=== PATIENT | male | born 1955 | race Caucasian/White ===

== ENCOUNTER 2019-11-22 21:36 | Emergency (ER) | payer BC, MEDICARE ==
[2019-11-22] MEDS ORDERED: ASPIRIN 81 MG TABLET, CHEWABLE PO ONE (23:07)
[2019-11-22] MEDS ORDERED: IPRATROPIUM/ALBUTEROL 0.5-2.5 MG/3 ML AMPUL NEB ONE (23:08)
[2019-11-22] MEDS ORDERED: LISINOPRIL 10 MG TABLET PO ONE (23:08)
--- NOTE | 2019-11-22 23:09 | ER Document Report ---
ED Medical Screen (RME) - General Chief Complaint: Shortness Of Breath Stated Complaint: DIFFICULTY BREATHING Time Seen by Provider: 11/22/19 23:07 Primary Care Provider: RICKY ASHER MD [Primary Care Provider] - Follow up as needed Notes: Patient presents complaining of cough for the past 2 days with shortness of breath. Patient reports midsternal chest pain that has been constant. Patient denies any fever. Patient does have a history of COPD and hypertension and has been off of his lisinopril for some time. I have greeted and performed a rapid initial assessment of this patient. A comprehensive ED assessment and evaluation of the patient, analysis of test results and completion of the medical decision making process will be conducted by additional ED providers. TRAVEL OUTSIDE OF THE [place] IN LAST 30 DAYS: No - Related Data Allergies/Adverse Reactions: Penicillins Allergy (Intermediate, Verified 11/22/19 23:02) Swelling, Hives Past Medical History - Social History Frequency of alcohol use: None Drug Abuse: None - Past Medical History Cardiac Medical History: Reports: Hx Hypertension - on meds Denies: Hx Coronary Artery Disease, Hx Heart Attack Pulmonary Medical History: Denies: Hx Asthma, Hx Bronchitis, Hx COPD, Hx Pneumonia Neurological Medical History: Denies: Hx Cerebrovascular Accident, Hx Seizures Musculoskeltal Medical History: Denies Hx Arthritis Psychiatric Medical History: Reports: Hx Depression Past Surgical History: Reports: Hx Orthopedic Surgery - cervical fusion - Immunizations Hx Diphtheria, Pertussis, Tetanus Vaccination: Yes Physical Exam - Vital signs Vitals: Temp Pulse Resp BP Pulse Ox 98.1 F 96 20 170/106 H 98 11/22/19 22:28 11/22/19 22:28 11/22/19 22:28 11/22/19 22:28 11/22/19 22:28 - Respiratory Respiratory status: No respiratory distress Chest status: Tender, Pain with cough Breath sounds: Nonproductive cough Course - Vital Signs Vital signs: Temp Pulse Resp BP Pulse Ox 98.1 F 96 20 170/106 H 98 11/22/19 22:28 11/22/19 22:28 11/22/19 22:28 11/22/19 22:28 11/22/19 22:28 Doctor's Discharge - Discharge Referrals: RICKY ASHER MD [Primary Care Provider] - Follow up as needed
[2019-11-22 23:32] LABS: ABSOLUTE EOSINOPHILS # (AUTO) 0.2 10^3/uL (0.0-0.6); ABSOLUTE LYMPHOCYTES (AUTO) 1.1 10^3/uL (0.5-4.7); ABSOLUTE MONOCYTES (AUTO) 0.8 10^3/uL (0.1-1.4); ABSOLUTE NEUT (AUTO) 3.6 10^3/uL (1.7-8.2); BASOPHILS % (AUTO) 0.8 % (0-2); EOSINOPHILS % (AUTO) 3.1 % (0-6); HEMATOCRIT 45.2 % (37.9-51.0); HEMOGLOBIN 15.8 g/dL (13.5-17.0); LYMPHOCYTES % (AUTO) 19.5 % (13-45); MEAN CORPUSCULAR HEMOGLOBIN 30.7 pg (27.0-33.4); MEAN CORPUSCULAR VOLUME 88 fl (80-97); MONOCYTES % (AUTO) 13.4 % (3-13); PLATELET COUNT 104 10^3/uL (150-450); RED BLOOD COUNT 5.14 10^6/uL (4.35-5.55); RED CELL DISTRIBUTION WIDTH 15.9 % (11.5-14.0); SEGMENTED NEUTROPHILS % (AUTO) 63.2 % (42-78); TOTAL CELLS COUNTED % (AUTO) 100 %; WHITE BLOOD COUNT 5.7 10^3/uL (4.0-10.5)
[2019-11-22 23:44] LABS: ALBUMIN 4.7 g/dL (3.5-5.0); ALKALINE PHOSPHATASE 87 U/L (38-126); ANION GAP 13 (5-19); ASPARTATE AMINO TRANSFERASE 25 U/L (17-59); BILIRUBIN,DIRECT 0.2 mg/dL (0.0-0.4); BILIRUBIN,TOTAL 0.9 mg/dL (0.2-1.3); BLOOD UREA NITROGEN 19 mg/dL (7-20); CALCIUM 9.9 mg/dL (8.4-10.2); CARBON DIOXIDE 23 mmol/L (22-30); CHLORIDE 104 mmol/L (98-107); GLUCOSE 103 mg/dL (75-110); POTASSIUM 3.9 mmol/L (3.6-5.0); TOTAL PROTEIN 8.2 g/dL (6.3-8.2)
[2019-11-22 23:54] LABS: NT PRO BNP 49 pg/mL (<125)
[2019-11-22 23:55] LABS: TROPONIN I < 0.012 ng/mL
--- NOTE | 2019-11-23 00:36 | RADIOLOGY REPORT (SQ) ---
EXAM DESCRIPTION: XR CHEST 2 VIEWS COMPLETED DATE/TME: 11/22/2019 23:08 CLINICAL HISTORY: 64 years, Male, cp, sob COMPARISON: Prior study from 03/31/2016. NUMBER OF VIEWS: Two TECHNIQUE: Frontal and lateral radiographs of the chest were obtained LIMITATIONS: None. FINDINGS: Cardiac and mediastinal contours are stable. Lungs are clear. No pleural effusion or pneumothorax. Right paravertebral osteophyte is noted about the lower thoracic spine. IMPRESSION: No acute disease. copyright 2010 [email or web address]- All Rights Reserved
[2019-11-23] MEDS ORDERED: IPRATROPIUM/ALBUTEROL 0.5-2.5 MG/3 ML AMPUL NEB ONE (03:34)
--- NOTE | 2019-11-23 03:40 | ER Document Report ---
ED General - General Chief Complaint: Shortness Of Breath Stated Complaint: DIFFICULTY BREATHING Time Seen by Provider: 11/22/19 23:07 Primary Care Provider: JAMAL ASHER MD [Primary Care Provider] - Follow up as needed TRAVEL OUTSIDE OF THE [place] IN LAST 30 DAYS: No - HPI Notes: Mr. Cerrato is a 64-year-old male presenting with a chief complaint of breathing problems. This man is a patient of Dr. Jamal Asher . Longstanding history of COPD. Stop smoking 13 years ago. Patient lost his health insurance and has been out of all of his medications. All medicines have just been called in by his doctor and waiting for him a drug store. He came in tonight because he was wheezing and generally did not feel well. He denies chest pain at this time. He denies fever. He denies sputum production. - Related Data Allergies/Adverse Reactions: Penicillins Allergy (Intermediate, Verified 11/22/19 23:02) Swelling, Hives Past Medical History - Social History Smoking Status: Former Smoker Frequency of alcohol use: None Drug Abuse: None Family History: Reviewed & Not Pertinent Patient has suicidal ideation: No Patient has homicidal ideation: No - Past Medical History Cardiac Medical History: Reports: Hx Hypertension - on meds Denies: Hx Coronary Artery Disease, Hx Heart Attack Pulmonary Medical History: Denies: Hx Asthma, Hx Bronchitis, Hx COPD, Hx Pneumonia Neurological Medical History: Denies: Hx Cerebrovascular Accident, Hx Seizures Musculoskeletal Medical History: Denies Hx Arthritis Psychiatric Medical History: Reports: Hx Depression Past Surgical History: Reports: Hx Orthopedic Surgery - cervical fusion - Immunizations Hx Diphtheria, Pertussis, Tetanus Vaccination: Yes Review of Systems - Review of Systems Notes: Constitutional: Negative for fever. HENT: Negative for sore throat. Eyes: Negative for visual changes. Cardiovascular: Negative for chest pain. Respiratory: As per HPI. Gastrointestinal: Negative for abdominal pain, vomiting or diarrhea. Genitourinary: Negative for dysuria. Musculoskeletal: Negative for back pain. Skin: Negative for rash. Neurological: Negative for headaches, weakness or numbness. 10 point ROS negative except as marked above and in HPI. Physical Exam - Vital signs Vitals: Temp Pulse Resp BP Pulse Ox 98.1 F 96 20 170/106 H 98 11/22/19 22:28 11/22/19 22:28 11/22/19 22:28 11/22/19 22:28 11/22/19 22:28 - Notes Notes: GENERAL: Well-developed well-nourished appearing in no acute distress. SKIN: Good turgor no rashes. HEAD: Normocephalic atraumatic. EYES: PERRLA. EOMI. Conjunctivae and sclerae clear. EARS: CANALS AND TMS CLEAR. NOSE: CLEAR. MOUTH: Moist mucosa. Good dentition. No stridor or edema. No drooling. NECK: Supple. No masses or thyromegaly. No adenopathy. Carotids 2+ without bruits. No JVD. BACK: Symmetrical without tenderness. CHEST: Respirations unlabored. Scattered wheezes bilaterally . HEART: Regular rhythm. No murmur gallop or rub. ABDOMEN: Soft nontender without masses, organomegaly or rebound. Bowel sounds normally active. No bruits. GENITALIA: Deferred. EXTREMITIES: No edema. No calf tenderness. Cap refill less than 1.5 seconds. Dorsalis pedis and posterior tibial pulses 3+ and symmetrical. NEUROLOGICAL: GCS 15. Alert and oriented x3. Normal gait. Fluent speech. Cranial nerves II through XII intact. Sensorimotor and cerebellar normal. Normal tone. PSYCHIATRIC: Appropriate affect. Course - Re-evaluation Re-evalutation: 11/23/19 05:45 Received DuoNeb here. Also was given some oral clonidine for his blood pressure. Blood pressure came down nicely and his chest is now clear and he feels much better. I feel he stable for discharge and he is instructed to fill his current medications. I am also going to place him on a brief course of oral prednisone for 5 days. - Vital Signs Vital signs: Temp Pulse Resp BP Pulse Ox 97.9 F 78 24 H 148/92 H 97 11/23/19 01:45 11/23/19 03:48 11/23/19 01:45 11/23/19 03:46 11/23/19 03:48 - Laboratory Result Diagrams: 11/22/19 23:10 11/22/19 23:10 Laboratory results interpreted by me: 11/22/19 11/22/19 23:10 23:10 RDW 15.9 H Plt Count 104 L [place] % (Auto) 13.4 H Creatinine 1.27 H Est GFR (MDRD) Non-Af 57 L - Diagnostic Test Radiology reviewed: Reports reviewed Radiology results interpreted by me: 11/23/19 05:44 PA lateral chest x-ray shows no active disease per radiologist. Discharge - Discharge Clinical Impression: COPD exacerbation, Essential hypertension, Noncompliance Condition: Stable Disposition: HOME, SELF-CARE Additional Instructions: Restart all of your usual medications. In addition I am giving you a pr escription for prednisone. Follow-up with your primary care physician within the next 10 days. Return here as needed for new or worsening symptoms: Pain that is worsening or unimproved Uncontrolled vomiting High fever or shaking chills Overall worsening Prescriptions: Prednisone [Deltasone 20 mg Tablet] 2 tab PO DAILY 5 Days tablet Referrals: JAMAL ASHER MD [Primary Care Provider] - Follow up as needed
[2019-11-23] MEDS: CLONIDINE HCL 0.1 MG TABLET PO ONE ×2 (03:41→03:53)
[2019-11-23 06:07] VITALS: BP 146/89
--- NOTE | 2019-11-23 08:28 | EKG REPORT ---
SEVERITY:- ABNORMAL ECG - SINUS RHYTHM INCOMPLETE RIGHT BUNDLE BRANCH BLOCK : Confirmed by: Gian Gonzalez MD 23-Nov-2019 08:27:50
== END 2019-11-23 06:06 | disposition home or self-care (01) ==
LOC: ER 21:36
DX: J44.1 Chronic obstructive pulmonary disease with (acute) exacerbation (principal); I10 Essential (primary) hypertension; Z91.14 Patient's other noncompliance with medication regimen; Z87.891 Personal history of nicotine dependence; Z88.0 Allergy status to penicillin
CPT/HCPCS: 93005; 94640 ×2; 99285; 36415; 85025; 80053; 84484; 83880; 71046; 93010; A9270 ×4; J7620

== ENCOUNTER 2020-03-11 15:25 | Emergency (ER) | payer BC, MEDICARE ==
[2020-03-11 17:09] LABS: A TYPE INFLUENZA AG NEGATIVE (NEGATIVE); B INFLUENZA AG NEGATIVE (NEGATIVE)
--- NOTE | 2020-03-11 17:15 | RADIOLOGY REPORT (SQ) ---
EXAM DESCRIPTION: CHEST SINGLE VIEW IMAGES COMPLETED DATE/TIME: 03/11/2020 4:55 pm REASON FOR STUDY: productive cough COMPARISON: 11/22/2019. NUMBER OF VIEWS: One view. TECHNIQUE: Single frontal radiographic view of the chest acquired. LIMITATIONS: None. FINDINGS: LUNGS AND PLEURA: No opacities, masses or pneumothorax. No pleural effusion. MEDIASTINUM AND HILAR STRUCTURES: No masses. Contour normal. HEART AND VASCULAR STRUCTURES: Heart normal in size. Normal vasculature. BONES: No acute findings. HARDWARE: None in the chest. OTHER: No other significant finding. IMPRESSION: NO SIGNIFICANT RADIOGRAPHIC FINDING IN THE CHEST. TECHNICAL DOCUMENTATION: JOB ID: [id number] 2010 [email or web address]- All Rights Reserved Reading location - IP/workstation name: [email or web address]
--- NOTE | 2020-03-11 17:15 | ER Document Report ---
HPI - HPI Time Seen by Provider: 03/11/20 15:45 Pain Level: Denies Notes: Patient is a 64-year-old male presenting to the emergency department with 3-day history of cough and sinus pain. Patient reports he has not had a fever or body aches. He has had green sputum production. He reports history of COPD, hypertension and hyperlipidemia. He is concerned for COVID-19 as he states that his roommate has similar symptoms and works in a grocery store. Past Medical History - General Information source: Patient - Social History Smoking Status: Former Smoker Family History: Reviewed & Not Pertinent Patient has suicidal ideation: No Patient has homicidal ideation: No - Past Medical History Cardiac Medical History: Reports: Hx Hypertension - on meds Denies: Hx Coronary Artery Disease, Hx Heart Attack Pulmonary Medical History: Denies: Hx Asthma, Hx Bronchitis, Hx COPD, Hx Pneumonia Neurological Medical History: Denies: Hx Cerebrovascular Accident, Hx Seizures Musculoskeletal Medical History: Denies Hx Arthritis Psychiatric Medical History: Reports: Hx Depression Past Surgical History: Reports: Hx Orthopedic Surgery - cervical fusion - Immunizations Hx Diphtheria, Pertussis, Tetanus Vaccination: Yes Vertical Provider Document - CONSTITUTIONAL Notes: PHYSICAL EXAMINATION: GENERAL: Well-appearing, well-nourished and in no acute distress. HEAD: Atraumatic, normocephalic. EYES: Pupils equal round and reactive to light, extraocular movements intact, sclera anicteric, conjunctiva are normal. ENT: Nares patent, oropharynx clear without exudates. Moist mucous membranes. Tenderness to palpation over the frontal sinuses. NECK: Normal range of motion, supple without lymphadenopathy LUNGS: Breath sounds clear to auscultation bilaterally and equal. No wheezes rales or rhonchi. HEART: Regular rate and rhythm without murmurs ABDOMEN: Soft, nontender, nondistended abdomen. No guarding, no rebound. No masses appreciated. Musculoskeletal: Normal range of motion, no pitting or edema. No cyanosis. NEUROLOGICAL: Cranial nerves grossly intact. Normal speech, normal gait. Normal sensory, motor exams PSYCH: Normal mood, normal affect. SKIN: Warm, Dry, normal turgor, no rashes or lesions noted. - INFECTION CONTROL TRAVEL OUTSIDE OF THE [place] IN LAST 30 DAYS: No Course - Re-evaluation Re-evalutation: Patient appears well, nontoxic. Influenza testing negative. Chest negative. Further testing pending. Patient does have tenderness to palpation over the frontal sinuses. He has had sinusitis in the past. Will start patient on doxycycline for this. Patient is in agreement with plan. COVID-19 quarantine precautions discussed with patient, he verbalized understanding and agreement with this. Handout was given from the state with guidelines for restrictions until he gets the COVID-19 testing result. - Vital Signs Vital signs: Temp Pulse Resp BP Pulse Ox 98.3 F 106 H 17 137/88 H 99 03/11/20 15:52 03/11/20 15:52 03/11/20 15:52 03/11/20 15:52 03/11/20 15:52 Discharge - Discharge Clinical Impression: Educated about COVID-19 virus infection Sinusitis Qualifiers: Sinusitis location: frontal Chronicity: acute Recurrence: not specified as recurrent Qualified Code(s): J01.10 - Acute frontal sinusitis, unspecified Condition: Stable Disposition: HOME, SELF-CARE Prescriptions: Benzonatate [Tessalon Perles 100 mg Capsule] 1 - 2 tab PO Q8HP PRN #30 capsule PRN Reason: Doxycycline Hyclate [Vibramycin] 100 mg PO BID #14 capsule Referrals: RICKY ASHER MD [Primary Care Provider] - Follow up as needed
[2020-03-11 18:25] VITALS: BP 129/82
== END 2020-03-11 18:25 | disposition home or self-care (01) ==
LOC: ER 15:25
DX: J01.10 Acute frontal sinusitis, unspecified (principal); R05 Cough; Z20.828 Contact with and (suspected) exposure to other viral communicable diseases; Z87.891 Personal history of nicotine dependence
CPT/HCPCS: 71045; 87635; 87804; 99283